=== PATIENT | male | born 1975 | race Caucasian/White ===

== ENCOUNTER 2023-06-16 09:06 | Outpatient (AMB) | payer BC, SELFPAY ==
[2023-06-16 09:13] VITALS: BP 122/82; PULSE 68; RESP 14; TEMP 37.2; O2SAT 98; BMI 21.3
--- NOTE | 2023-06-16 09:13 | A.OFFPC_ITS ---
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 Patient would like to request a referral for a colonoscopy. 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 Accompanied by: Self / Same As Patient Allergies No Known Allergies Allergy (Verified 06/16/23 09:41) Medication List - Last Reconciled 06/16/23 by Flor Amezcua CNP sertraline 50 mg PO DAILY Tobacco use date assessed: 06/16/23 Dental Screening Dental Screen Date: 06/16/23 Did you have a dental visit in the last 12 months?: Yes Did you have a dental problem in the last 6 months where you did not have access to dental care?: No Was dental information given to patient?: Patient has dentist HPI HPI Comments History of Present Illness Details 48-year-old male presents to establish care He notes he was last evaluated by his former PCP and had blood work done 5-6 years ago He reports h/o anxiety and depression, on sertraline which he admits to taking daily with significant symptoms relief. He states he is followed by a psychiatrist, who manages his psychotropic, every 2 months. He states he sees a therapist every other month. He reports itchy, pimple-like spot proximal to his rectum. The spot which has been present for 2-3 years is more itchy after a bowel movement. He noticed the spot and started having symptoms following cholecystectomy. He denies changes in appetite or bowel habits; denies bloody stool; denies abdominal pain. He requests GI referral. No acute symptoms today. He notes he sexually active, in a monogamous relationship, and practices safe sex. He reports vaping THC and CBD mix daily. He notes he has been vaping for 2 years. He denies smoking cigarette. He drinks alcohol occasionally. FH: Brother has schizophrenia [facility] Surgical History (Updated 06/16/23 @ 09:30 by Dora Presley) History of cholecystectomy Social History Housing: House Housing Other:: Self, spouse, 2 daughters and 2 cats Patient Tobacco Use Status: Former Tobacco user e-Cigarette/Vaping Use: Currently Using service: No Current occupational status: employed Current occupation: [employer] in [employer] ([employer] Current occupational exposures/hazards: Yes Cognitive needs: No Hearing needs: No Vision needs: Yes (distance ) Questionnaire PHQ-9 Over the last 2 weeks, how often have you been bothered by any of the following problems? 1. Little interest or pleasure in doing things: not at all 2. Feeling down, depressed, or hopeless: not at all 3. Trouble falling or staying asleep, or sleeping too much: not at all 4. Feeling tired or having little energy: not at all 5. Poor appetite or overeating: not at all 6. Feeling bad about yourself - or that you are a failure or have let yourself or your family down: several days 7. Trouble concentrating on things, such as reading the newspaper or watching television: not at all 8. Moving or speaking so slowly that other people could have noticed. Or the opposite - being so fidgety or restless that you have been moving around a lot more than usual: not at all 9. Thoughts that you would be better off or of hurting yourself in some way: not at all Total score: 1 Depression Screening Interpretation: Negative 16469 - PHQ-9 Billing: Yes Source: Developed by Drs. Cy Jones, Юлия Britt, Seb Hickman and colleagues, with an educational candy from [employer]. Thrive Questionnaire Date Thrive assessed: 06/16/23 I am a: Patient What is your living situation today?: I have a steady place to live Within the past 12 months, did the food you bought not last and you didn't have the money to get more?: Never true Within the past 12 months, did you worry whether your food would run out before you got money to buy more?: Never true Do you have trouble paying for medicines?: No Do you have trouble getting transportation to medical appointments?: No Do you have trouble paying your heating and electricity bill?: No Do you have trouble taking care of your child, family member or friend?: No Do you have trouble with day-to-day activities such as bathing, preparing meals, shopping, managing finances, etc.?: No Are you currently unemployed and looking for a job?: No Are you interested in more education?: No Please select the resources that you would like help with: None Currently or been in a relationship where the following occur: no concerns reported AUDIT C Alcohol Use Questionnaire (AUDIT-C) 1. How often do you have a drink containing alcohol?: Monthly or less 2. How many drinks containing alcohol do you have on a typical day when you are drinking?: 1 or 2 3. How often do you have six or more drinks on one occasion?: Never Total Score: 1 TASHA-7 AMB Questionnaire TASHA-7 Date TASHA - 7 assessed: 06/16/23 Feeling nervous, anxious, or on edge: 1 = Several days Not being able to stop or control worryin = Several days Worrying too much about different things: 1 = Several days Trouble relaxin = Not at all Being so restless that it is hard to sit still: 0 = Not at all Becoming easily annoyed or irritable: 1 = Several days Feeling afraid as if something awful might happen: 0 = Not at all Total TASHA-7 score (0-4 normal; 5-9 mild; 10-14 moderate; 15-21 severe): 4 Source: Developed by Drs. Cy Jones, Юлия Britt, Seb Hickman and colleagues, with an educational candy from [employer]. TASHA-7 Assessment Billing TASHA-7 Assessment Tool: TASHA-7 Assessment 19089 Review of Systems Const Details: Denies chills, Denies fatigue, Denies fever(s), Denies headache(s) and Denies weakness HEENT Denies change in vision, Denies dizziness, Denies headache(s), Denies hearing loss, Denies nasal congestion, Denies sinus pain, Denies sinus pressure and Denies sore throat Card Denies chest pain, Denies lightheadedness, Denies dyspnea and Denies other (palpitations) Resp Denies cough, Denies dyspnea and Denies wheezing GI Denies abdominal pain, Denies melena, Denies hematochezia, Denies change in bowel habits, Denies dyspepsia and Denies nausea Denies hematuria and Denies dysuria Musc Denies abnormal gait, Denies myalgias, Denies arthralgias, Denies numbness and Denies tingling Skin/Breast Reports rash, Denies unusual bruising and Denies wounds Neuro Denies abnormal gait, Denies dizziness, Denies headache(s), Denies memory loss, Denies numbness, Denies Sensory deficit (Neuro), Denies tingling and Denies weakness Psych Reports anxiety, Reports depression and Denies memory loss Endo Denies cold intolerance, Denies fatigue, Denies heat intolerance, Denies polydipsia and Denies polyuria Tj/Lymph Denies easy bleeding and Denies easy bruising Aller/Immun Denies wheezing Physical exam (Primary Care) Vital Signs: Last Vital Signs Temp 98.9 F 06/16/23 09:13 Pulse 68 06/16/23 09:13 Resp 14 06/16/23 09:13 BP 122/82 06/16/23 09:13 Pulse Ox 98 06/16/23 09:13 Oxygen Delivery Method Room Air 06/16/23 09:13 BMI result Body Mass Index 21.3 Tobacco/Smoking Status: Tobacco use Status Tobacco use date assessed 06/16/23 06/16/23 09:24 Patient Tobacco Use Status Former Tobacco user 06/16/23 09:24 e-Cigarette/Vaping Use Currently Using 06/16/23 09:24 PHQ-9: PHQ-9 Score PHQ-9: Total score 1 06/16/23 09:39 Depression Screening Interpretation: Negative Thrive Assessment: Date of Thrive Assessment Date Thrive assessed 06/16/23 06/16/23 09:39 Currently or been in a relationship where the following occur: no concerns reported Const Other: General: no acute distress, well developed, alert and awake Nutritional Appearance: well nourished Orientation/consciousness: patient oriented x3 HENMT Head: Yes normocephalic and Yes atraumatic Ears: hearing grossly normal bilaterally and TM's normal bilaterally General nose exam: Normal external nose present and Normal nares present Mouth: Normal oral and palatal mucosa present and moist mucous membranes Teeth and gingiva: dentition normal Throat: Yes oropharynx normal Eyes Pupils: Equal, round and reactive pupils present and Pupil accommodation reflex normal EOM: EOMs intact bilaterally Neck Neck: Yes normal visual inspection, Yes no lymphadenopathy and Yes trachea midline Thyroid: Thyroid normal Carotids: no bruits Lymphatic: no lymphadenopathy noted Chest Chest palpation & inspection: normal inspection of the chest Resp Effort & Inspection: normal respiratory effort Auscultation: clear to auscultation bilaterally Cardio Rate: regular rate Rhythm: regular rhythm Heart sounds: S1 normal heart sound present, S2 normal heart sound present, no gallops, no murmurs and no rubs Bruits: no abdominal aortic bruits and no carotid bruits GI Palpation (GI): No Abdominal aortic bruit present, Soft to palpation, nontender, No hepatosplenomegaly present and No Rebound tenderness present Auscultation: normal bowel sounds General: Yes no CVA tenderness Back/Spine/Pelvis Back: no CVA tenderness Cervical Spine: cervical ROM normal and No Cervical spine tenderness Thoracic/Lumbar Spine: thoraco-lumbar ROM normal, No pain with thoraco-lumbar ROM, No thoracic spinal tenderness and No lumbar spinal tenderness Skin General: warm and dry. Normal skin color. Normal skin turgor Lesions: no lesions Rashes: no rashes Trauma: no lacerations or abrasions Wounds: no wounds Nails: normal Neuro General: patient oriented x3, gait normal and CN's II-XI intact bilaterally Cranial nerves: Yes Equal, round and reactive pupils present Cognition (Neuro): normal cognition Gait exam (Neuro): Normal gait present Motor exam (neuro): 5/5 motor strength present throughout Sensory Exam: No Sensory deficit (Neuro) Deep tendon reflexes (DTR's): Right patellar reflex intensity grade: 2+ and Left patellar reflex intensity grade: 2+ Extrem General: Yes normal to inspection, No edema and No calf tenderness Psych Appearance: grossly normal Affect: normal affect Attitude: cooperative Thought process: Normal thought process present Assessment and Plan Assessment & Plan (1) Normal physical examination, routine: Code(s): Z00.00 - Encounter for general adult medical examination without abnormal findings Plan: No significant physical restrictions or limitations noted Advised to get fasting blood work done before next visit Follow-up in 1 month for labs review and anxiety and depression follow-up Return sooner with new or worsening symptoms Verbalized understanding and agreed with treatment plan. (2) Anxiety and depression: Code(s): F41.9 - Anxiety disorder, unspecified; F32.A - Depression, unspecified Plan: PHQ-9 and TASHA-7 scores are normal Continue to take Sertraline as prescribed Continue follow-up with Behavioral team as planned Routine exercise encouraged Follow-up in 1 month or return sooner with worsening or new symptoms Verbalized understanding and agreed with treatment plan. (3) Perineal rash: Code(s): R21 - Rash and other nonspecific skin eruption Plan: Possibly pimple-like rash proximal to his rectum He notes the rash has been present for the past 2 years. No changes in bowel habits Declines assessment of the rash at this time and defers to GI Colonoscopy and GI referral made Follow-up with worsening or new signs and symptoms Verbalized understanding and agreed with the plan. (4) Colon cancer screening: Code(s): Z12.11 - Encounter for screening for malignant neoplasm of colon Plan: As above (5) Current every day vaping: Code(s): Z72.89 - Other problems related to lifestyle Plan: Reports vaping THC and CBD mix daily. He notes he has been vaping for 2 years. Instructed on the risk of serious respiratory issues to vaping. Encouraged to avoid vaping Verbalized understanding and agreed with treatment plan. (6) Laboratory tests ordered as part of a complete physical exam (CPE): Code(s): Z00.00 - Encounter for general adult medical examination without abnormal findings Plan: Fasting labs ordered as part of a complete physical exam. Advised to fast for at least 10 hours before getting labs drawn. May drink water Verbalized understanding and agreed with treatment plan. Orders: Orders Comprehensive [place]. Panel Fast Today Z00.00 - Encounter for general adult medical examination without abnormal findings Lipid Panel Today Z00.00 - Encounter for general adult medical examination without abnormal findings TSH reflex Free T4 Today Z00.00 - Encounter for general adult medical examination without abnormal findings Complete Blood Count Auto Diff Today Z00.00 - Encounter for general adult medical examination without abnormal findings UA CC w/rflx Micro + Cult Today Z00.00 - Encounter for general adult medical examination without abnormal findings Referrals Gastroenterology Referral R21 - Rash and other nonspecific skin eruption, Z12.11 - Encounter for screening for malignant neoplasm of colon Coding Level of Care Code New Pt Level 3 (11878) New Pt Prev Care 40-64y(71992) Diagnoses Normal physical examination, routine Z00.00 Anxiety and depression F41.9; F32.A Perineal rash R21 Colon cancer screening Z12.11 Current every day vaping Z72.89 Laboratory tests ordered as part of a complete physical exam (CPE) Z00.00 Additional Codes TASHA-7 Assessment Billing - TASHA-7 Assessment Tool: TASHA-7 Assessment [id number] ([id number])
== END 2023-06-16 10:08 | disposition home or self-care (01) ==
PROVIDERS: PCP Hospitalist; Visit Provider Nurse Practitioner Family
DX: Z00.00 Encounter for general adult medical examination without abnormal findings (principal); F41.9 Anxiety disorder, unspecified; F32.A Depression, unspecified; R21 Rash and other nonspecific skin eruption; Z12.11 Encounter for screening for malignant neoplasm of colon; Z72.89 Other problems related to lifestyle
CPT/HCPCS: 99386

== ENCOUNTER 2023-07-10 07:13 | Outpatient (REF) | payer BC, SELFPAY ==
[2023-07-10 11:23] LABS: MANUAL DIFF FLAG NO
[2023-07-10 11:37] LABS: Basophils Absolute Auto 0.1 X10*3/uL (0.0-0.2); Basophils Percent Auto 0.9 % (0-2); Eosinophils Absolute Auto 0.3 X10*3/uL (0.0-0.4); Eosinophils Percent Auto 5.9 % (0-4); Hematocrit 47.9 % (42.0-52.0); Hemoglobin 16.4 g/dl (14.0-18.0); Imm Gran Abs Auto 0.02 X10*3/uL (0.00-0.03); Imm Gran Pct Auto 0.4 % (0.0-0.4); Lymphocytes Absolute Auto 1.2 X10*3/uL (1.2-4.9); Lymphocytes Percent Auto 20.6 % (20-40); Mean Corpuscular HGB Conc 34.2 g/dl (31.0-36.0); Mean Corpuscular Hemoglobin 30.5 pg (27.0-33.0); Mean Corpuscular Volume 89.2 fL (80.0-98.0); Mean Platelet Volume 11.3 fL (9.4-12.4); Monocytes Absolute Auto 0.4 X10*3/uL (0.1-1.2); Monocytes Percent Auto 7.6 % (2-11); Neutrophils Absolute Auto 3.6 x10*3/uL (2.0-8.3); Neutrophils Percent Auto 64.6 % (45-73); Platelet Count 189 X10*3/uL (160-400); Red Blood Count 5.37 X10*6/uL (4.60-5.80); Red Cell Distribution Width 12.1 % (11.0-16.0); White Blood Count 5.6 X10*3/uL (4.8-10.8)
[2023-07-10 14:06] LABS: Alanine Aminotransferase 25 U/L (0-40); Albumin Level 4.5 g/dL (3.5-5.0); Alkaline Phosphatase 90 U/L (39-117); Anion Gap 10 (12-20); Aspartate Amino Transferase 18 U/L (5-37); Bilirubin Total 0.7 mg/dL (0.0-1.0); Blood Urea Nitrogen 16 mg/dL (9-16); Calcium 9.3 mg/dL (8.4-10.2); Carbon Dioxide 29 mmol/L (22-29); Chloride 104 mmol/L (96-108); Cholesterol 201 mg/dL (<200); Estimated Glomerular Filt Rate > 60; Glucose Fasting 101 mg/dL (60-99); HDL Cholesterol 40 mg/dL (>40); LDL Cholesterol Calculated 146 mg/dL (<100); Potassium 4.2 mmol/L (3.3-5.1); Sodium 139 mmol/L (135-145); Total Protein 7.6 g/dL (6.5-8.0); Triglycerides 79 mg/dL (<150)
[2023-07-10 14:08] LABS: TSH reflex Free T4 2.34 uIU/mL (0.32-4.0)
== END 2023-07-10 07:14 | disposition home or self-care (01) ==
LOC: HO.WFDLDS 07:13
PROVIDERS: Visit Provider Nurse Practitioner Family
DX: Z00.00 Encounter for general adult medical examination without abnormal findings (principal)
CPT/HCPCS: 36415; 80053; 80061; 84443; 85025

== ENCOUNTER 2023-07-14 08:51 | Outpatient (REF) | payer BC, SELFPAY ==
[2023-07-14 11:56] LABS: Appearance Urine Clear; Color Urine Yellow; Glucose Urine UA Negative (Negative); Leukocyte Esterase Urine Negative (Negative); Nitrite Urine Negative (Negative); PH 6.5 (5.0-9.0); Specific Gravity - Urine 1.025 (1.005-1.025); Urine Blood Negative (Negative); Urine Ketones Negative (Negative); Urine Protein Negative (Neg-Trace)
[2023-07-14 12:51] LABS: Glucose Fasting 97 mg/dL (60-99)
== END 2023-07-14 08:52 | disposition home or self-care (01) ==
LOC: HO.WFDLDS 08:51
PROVIDERS: Visit Provider Nurse Practitioner Family
DX: Z00.00 Encounter for general adult medical examination without abnormal findings (principal); R73.01 Impaired fasting glucose
CPT/HCPCS: 36415; 81003; 82947

== ENCOUNTER 2023-07-14 08:53 | Outpatient (AMB) | payer BC, SELFPAY ==
[2023-07-14 09:02] VITALS: BP 122/70; PULSE 77; RESP 12; TEMP 36.5; O2SAT 99; BMI 21.9
--- NOTE | 2023-07-14 09:02 | A.OFFPC_ITS ---
Vital Signs 07/14/23 09:02 Height 6 ft 1 in Weight 166 lb 2 oz BMI 21.9 BP 122/70 Blood Pressure Location Rt brachial Position Sitting Respiration 12 Pulse 77 Pulse Source Pulse Oximeter Temp 97.7 F Temp Source Temporal Artery Scan Pulse Oximetry (%) 99 Oxygen Delivery Method Room Air Intake Visit Reasons: 1 mos labs review, anxiety/depression Rn Informatics Required: No Accompanied by: Self / Same As Patient Allergies No Known Allergies Allergy (Verified 07/14/23 09:15) Medication List - Last Reconciled 07/14/23 by Flor Amezcua CNP sertraline 50 mg PO DAILY Tobacco use date assessed: 06/16/23 Dental Screening Dental Screen Date: 07/14/23 Did you have a dental visit in the last 12 months?: Yes Did you have a dental problem in the last 6 months where you did not have access to dental care?: No Was dental information given to patient?: Patient has dentist HPI HPI Comments History of Present Illness Details 48-year-old male presents for anxiety, d epression, and labs review follow-up. He established care last month and had routine blood work done. He is on sertraline for anxiety and depression. He admits to taking his medications with controlled symptoms. He is followed by a psychiatrist, who manages his psychotropic, every 2 months. He states he sees a therapist every other month. He offers no complaints and denies acute symptoms at this time. [facility] Medical History (Updated 07/14/23 @ 09:18 by Flor Amezcua CNP) No pertinent past medical history Surgical History History of cholecystectomy Family History (Updated 07/14/23 @ 09:08 by Jennifer Cash MA) Other Mental health disorder Social History Housing: House Housing Other:: Self, spouse, 2 daughters and 2 cats Patient Tobacco Use Status: Former Tobacco user e-Cigarette/Vaping Use: Currently Using service: No Current occupational status: employed Current occupation: [employer] in [employer] ([employer]) Current occupational exposures/hazards: Yes Cognitive needs: No Hearing needs: No Vision needs: No (distance ) Questionnaire PHQ-9 Over the last 2 weeks, how often have you been bothered by any of the following problems? 1. Little interest or pleasure in doing things: not at all 2. Feeling down, depressed, or hopeless: not at all 3. Trouble falling or staying asleep, or sleeping too much: not at all 4. Feeling tired or having little energy: not at all 5. Poor appetite or overeating: not at all 6. Feeling bad about yourself - or that you are a failure or have let yourself or your family down: not at all 7. Trouble concentrating on things, such as reading the newspaper or watching television: not at all 8. Moving or speaking so slowly that other people could have noticed. Or the opposite - being so fidgety or restless that you have been moving around a lot more than usual: not at all 9. Thoughts that you would be better off or of hurting yourself in some way: not at all Total score: 0 Depression Screening Interpretation: Negative Source: Developed by Drs. Cy Jones, Seb Vizcaino and colleagues, with an educational candy from [employer]. Thrive Questionnaire Date Thrive assessed: 06/16/23 TASHA-7 AMB Questionnaire TASHA-7 Date TASHA - 7 assessed: 07/14/23 Feeling nervous, anxious, or on edge: 0 = Not at all Not being able to stop or control worryin = Not at all Worrying too much about different things: 0 = Not at all Trouble relaxin = Not at all Being so restless that it is hard to sit still: 0 = Not at all Becoming easily annoyed or irritable: 0 = Not at all Feeling afraid as if something awful might happen: 0 = Not at all Total TASHA-7 score (0-4 normal; 5-9 mild; 10-14 moderate; 15-21 severe): 0 Source: Developed by Drs. Cy Jones, Seb Vizcaino and colleagues, with an educational candy from [employer]. Review of Systems Const Details: Const Denies chills, Denies fatigue, Denies fever(s), Denies headache(s) and Denies weakness ENT Denies dizziness and Denies headache(s) Card Denies chest pain, Denies lightheadedness, Denies dyspnea and Denies other (Palpitations) Resp Denies cough, Denies dyspnea, Denies wheezing and Denies other ( shortness of breath) GI Denies abdominal pain, Denies melena, Denies hematochezia, Denies change in bowel habits, Denies dyspepsia and Denies nausea Denies hematuria and Denies dysuria Musc Denies abnormal gait, Denies myalgias, Denies arthralgias, Denies numbness and Denies tingling Skin/Breast Denies rash, Denies unusual bruising and Denies wounds Neuro Denies abnormal gait, Denies dizziness, Denies headache(s), Denies memory loss, Denies numbness, Denies Sensory deficit (Neuro), Denies tingling and Denies weakness Psych Denies anxiety, Denies depression, Denies memory loss Endo Denies cold intolerance, Denies fatigue, Denies heat intolerance, Denies polydipsia and Denies polyuria Aller/Immun Denies wheezing Physical exam (Primary Care) Vital Signs: Last Vital Signs Temp 97.7 F 07/14/23 09:02 Pulse 77 07/14/23 09:02 Resp 12 07/14/23 09:02 BP 122/70 07/14/23 09:02 Pulse Ox 99 07/14/23 09:02 Oxygen Delivery Method Room Air 07/14/23 09:02 BMI result Body Mass Index 21.9 Tobacco/Smoking Status: Tobacco use Status Tobacco use date assessed 06/16/23 07/14/23 09:09 Patient Tobacco Use Status Former Tobacco user 07/14/23 09:09 e-Cigarette/Vaping Use Currently Using 07/14/23 09:09 PHQ-9: PHQ-9 Score PHQ-9: Total score 0 07/14/23 09:09 Depression Screening Interpretation: Negative Thrive Assessment: Date of Thrive Assessment Date Thrive assessed 06/16/23 07/14/23 09:09 Const Other: General: no acute distress and well developed Nutritional Appearance: well nourished Orientation/consciousness: patient oriented x3 HENMT Head: Yes normocephalic and Yes atraumatic Eyes General: appearance normal, both eyes and all related structures Pupils: Equal, round and reactive pupils present EOM: EOMs intact bilaterally Resp Effort & Inspection: normal respiratory effort Auscultation: clear to auscultation bilaterally Cardio Rate: regular rate Rhythm: regular rhythm Heart sounds: S1 normal heart sound present, S2 normal heart sound present, no gallops, no murmurs and no rubs GI Palpation (GI): No Abdominal aortic bruit present, Soft to palpation, nontender, No hepatosplenomegaly present and No Rebound tenderness present Auscultation: normal bowel sounds General: Yes no CVA tenderness Back/Spine/Pelvis Back: no CVA tenderness Cervical Spine: cervical ROM normal and No Cervical spine tenderness Thoracic/Lumbar Spine: thoraco-lumbar ROM normal, No pain with thoraco-lumbar ROM, No thoracic spinal tenderness and No lumbar spinal tenderness Extrem General: Yes normal to inspection, No edema and No calf tenderness Skin General: warm and dry. Normal skin color. Normal skin turgor Lesions: no lesions Rashes: no rashes Trauma: no lacerations or abrasions Wounds: no wounds Nails: normal Neuro General: patient oriented x3, gait normal and no focal neuro deficit Cranial nerves: Yes Equal, round and reactive pupils present Cognition (Neuro): normal cognition Gait exam (Neuro): Normal gait present Sensory Exam: No Sensory deficit (Neuro) Psych Appearance: grossly normal Affect: normal affect Attitude: cooperative Thought process: Normal thought process present Assessment and Plan Assessment & Plan (1) Hypercholesterolemia: Code(s): E78.00 - Pure hypercholesterolemia, unspecified Plan: Recent lab results reviewed with the patient Cholesterol and LDL levels are elevated, HDL is low Advised to limit foods high in saturated fat and avoid foods high trans fat Routine exercise encouraged Verbalized understanding and agreed with treatment plan. (2) Elevated fasting glucose: Code(s): R73.01 - Impaired fasting glucose Plan: Recent fasting glucose is slightly elevated, 101 Will repeat fasting glucose Advised to fast for at least 10 hours before getting blood work done Will review results and make changes to his care plan as warranted Verbalized understanding and agreed with treatment plan. (3) Anxiety and depression: Code(s): F41.9 - Anxiety disorder, unspecified; F32.A - Depression, unspecified Plan: TASHA-7 and PHQ-9 scores are normal Continue to take sertraline as prescribed Routine exercise encouraged Continue follow-up with therapist and psychiatrist as planned Follow-up in 4 months or return sooner with worsening or new symptoms Verbalized understanding and agreed with treatment plan. Orders: Orders Glucose Fasting Today R73.01 - Impaired fasting glucose Coding Level of Care Code Est Pt Level 3 (66615) Diagnoses Hypercholesterolemia E78.00 Elevated fasting glucose R73.01 Anxiety and depression F41.9; F32.A
== END 2023-07-14 09:29 | disposition home or self-care (01) ==
PROVIDERS: PCP Nurse Practitioner Family; Visit Provider Nurse Practitioner Family
DX: E78.00 Pure hypercholesterolemia, unspecified (principal); R73.01 Impaired fasting glucose; F41.9 Anxiety disorder, unspecified; F32.A Depression, unspecified
CPT/HCPCS: 99213

== ENCOUNTER 2023-11-23 16:42 | Outpatient (AMB) | payer BC, SELFPAY ==
--- NOTE | 2023-11-23 16:44 | A.OFFPC_ITS ---
Vital Signs 11/23/23 16:45 Height 6 ft 1 in Weight 160 lb 6 oz BMI 21.2 BP 116/64 Blood Pressure Location Rt brachial Position Sitting Respiration 13 Pulse 70 Pulse Source Pulse Oximeter Temp 97.4 F Temp Source Temporal Artery Scan Pulse Oximetry (%) 99 Oxygen Delivery Method Room Air Intake Visit Reasons: 4 mos labs review, anxiety/depression Band Manager Required: No Accompanied by: Self / Same As Patient Allergies No Known Allergies Allergy (Verified 11/23/23 17:02) Medication List - Last Reconciled 11/23/23 by Flor Amezcua CNP sertraline 50 mg PO DAILY Tobacco use date assessed: 11/23/23 Dental Screening Dental Screen Date: 11/23/23 Did you have a dental visit in the last 12 months?: Yes Did you have a dental problem in the last 6 months where you did not have access to dental care?: No Was dental information given to patient?: Patient has dentist HPI HPI Comments History of Present Illness Details 48-year-old male presents for anxiety, d epression, and review of recent lab results He admits to taking his medications as prescribed without adverse reactions He reports controlled anxiety and depression symptoms He is followed by a psychiatrist every month. His psychiatric manages his psychotropic medications. He is supposed to see his therapist every other month but he has not follow up in a few months; he plans on scheduling an appointment soon He offers no complaints and denies acute symptoms at this time [facility] Medical History No pertinent past medical history Surgical History History of cholecystectomy Family History Other Mental health disorder Social History Housing: House Housing Other:: Self, spouse, 2 daughters and 2 cats Patient Tobacco Use Status: Former Tobacco user e-Cigarette/Vaping Use: Currently Using service: No Current occupational status: employed Current occupation: [employer] in [employer] ([employer]) Current occupational exposures/hazards: Yes Cognitive needs: No Hearing needs: No Vision needs: No (distance ) Questionnaire PHQ-9 Over the last 2 weeks, how often have you been bothered by any of the following problems? 1. Little interest or pleasure in doing things: several days 2. Feeling down, depressed, or hopeless: not at all 3. Trouble falling or staying asleep, or sleeping too much: several days 4. Feeling tired or having little energy: several days 5. Poor appetite or overeating: several days 6. Feeling bad about yourself - or that you are a failure or have let yourself or your family down: more than half the days 7. Trouble concentrating on things, such as reading the newspaper or watching television: not at all 8. Moving or speaking so slowly that other people could have noticed. Or the opposite - being so fidgety or restless that you have been moving around a lot more than usual: not at all 9. Thoughts that you would be better off or of hurting yourself in some way: not at all Total score: 6 Depression Screening Interpretation: Positive Depression Screening Follow-up: Existing condition and In treatment Depression Screening Done: Yes Source: Developed by Drs. Cy Jones, Юлия Britt, Seb Hickman and colleagues, with an educational candy from [employer]. Thrive Questionnaire Date Thrive assessed: 06/16/23 TASHA-7 AMB Questionnaire TASHA-7 Date TASHA - 7 assessed: 11/23/23 Feeling nervous, anxious, or on edge: 1 = Several days Not being able to stop or control worryin = Several days Worrying too much about different things: 0 = Not at all Trouble relaxin = Not at all Being so restless that it is hard to sit still: 0 = Not at all Becoming easily annoyed or irritable: 2 = More than half the days Feeling afraid as if something awful might happen: 1 = Several days Total TASHA-7 score (0-4 normal; 5-9 mild; 10-14 moderate; 15-21 severe): 5 Source: Developed by Drs. Cy Jones, лЮия Britt, Seb Hickman and colleagues, with an educational candy from [employer]. TASHA-7 Assessment Billing TASHA-7 Assessment Tool: TASHA-7 Assessment 86012 Review of Systems Const Details: Const Denies chills, Denies fatigue, Denies fever(s), Denies headache(s) and Denies weakness ENT Denies dizziness and Denies headache(s) Card Denies chest pain, Denies lightheadedness, Denies dyspnea and Denies other (Palpitations) Resp Denies cough, Denies dyspnea, Denies wheezing and Denies other ( shortness of breath) GI Denies abdominal pain, Denies melena, Denies hematochezia, Denies change in bowel habits, Denies dyspepsia and Denies nausea Denies hematuria and Denies dysuria Musc Denies abnormal gait, Denies myalgias, Denies arthralgias, Denies numbness and Denies tingling Skin/Breast Denies rash, Denies unusual bruising and Denies wounds Neuro Denies abnormal gait, Denies dizziness, Denies headache(s), Denies memory loss, Denies numbness, Denies Sensory deficit (Neuro), Denies tingling and Denies weakness Psych Denies anxiety, Denies depression, Denies memory loss Endo Denies cold intolerance, Denies fatigue, Denies heat intolerance, Denies polydipsia and Denies polyuria Aller/Immun Denies wheezing Physical exam (Primary Care) Vital Signs: Last Vital Signs Temp 97.4 F 11/23/23 16:45 Pulse 70 11/23/23 16:45 Resp 13 11/23/23 16:45 BP 116/64 11/23/23 16:45 Pulse Ox 99 11/23/23 16:45 Oxygen Delivery Method Room Air 11/23/23 16:45 BMI result Body Mass Index 21.2 Tobacco/Smoking Status: Tobacco use Status Tobacco use date assessed 11/23/23 11/23/23 16:54 Patient Tobacco Use Status Former Tobacco user 11/23/23 16:54 e-Cigarette/Vaping Use Currently Using 11/23/23 16:54 PHQ-9: PHQ-9 Score PHQ-9: Total score 6 11/23/23 16:54 Depression Screening Interpretation: Positive Depression Screening Follow-up: Existing condition and In treatment Thrive Assessment: Date of Thrive Assessment Date Thrive assessed 06/16/23 11/23/23 16:54 Const Other: General: no acute distress and well developed Nutritional Appearance: well nourished Orientation/consciousness: patient oriented x3 HENMT Head: Yes normocephalic and Yes atraumatic Eyes General: appearance normal, both eyes and all related structures Pupils: Equal, round and reactive pupils present EOM: EOMs intact bilaterally Resp Effort & Inspection: normal respiratory effort Auscultation: clear to auscultation bilaterally Cardio Rate: regular rate Rhythm: regular rhythm Heart sounds: S1 normal heart sound present, S2 normal heart sound present, no gallops, no murmurs and no rubs GI Palpation (GI): No Abdominal aortic bruit present, Soft to palpation, nontender, No hepatosplenomegaly present and No Rebound tenderness present Auscultation: normal bowel sounds General: Yes no CVA tenderness Back/Spine/Pelvis Back: no CVA tenderness Cervical Spine: cervical ROM normal and No Cervical spine tenderness Thoracic/Lumbar Spine: thoraco-lumbar ROM normal, No pain with thoraco-lumbar ROM, No thoracic spinal tenderness and No lumbar spinal tenderness Extrem General: Yes normal to inspection, No edema and No calf tenderness Skin General: warm and dry. Normal skin color. Normal skin turgor Neuro General: patient oriented x3, gait normal and no focal neuro deficit Cranial nerves: Yes Equal, round and reactive pupils present Cognition (Neuro): normal cognition Gait exam (Neuro): Normal gait present Sensory Exam: No Sensory deficit (Neuro) Psych Appearance: grossly normal Affect: normal affect Attitude: cooperative Thought process: Normal thought process present Assessment and Plan Assessment & Plan (1) Anxiety and depression: Code(s): F41.9 - Anxiety disorder, unspecified; F32.A - Depression, unspecified Plan: PHQ-9 and TASHA-7 scores revealed mild anxiety Continue current treatment regimen Follow-up with psychiatrist and therapist as planned Routine exercise encouraged Follow-up for telehealth visit in 1 month for hyperlipidemia. Advised to get fasting blood work done before his next visit Return sooner with worsening or new symptoms Verbalized understanding and agreed with treatment plan (2) Elevated fasting glucose: Code(s): R73.01 - Impaired fasting glucose Plan: Previous fasting glucose was elevated Recent fasting glucose is normal Orders: Orders Lipid Panel Today E78.00 - Pure hypercholesterolemia, unspecified Coding Level of Care Code Est Pt Level 3 (20053) Diagnoses Anxiety and depression F41.9; F32.A Elevated fasting glucose R73.01 Additional Codes TASHA-7 Assessment Billing - TASHA-7 Assessment Tool: TASHA-7 Assessment 18107 ([id number])
[2023-11-23 16:45] VITALS: BP 116/64; PULSE 70; RESP 13; TEMP 36.3; O2SAT 99; BMI 21.2
== END 2023-11-23 17:22 | disposition home or self-care (01) ==
PROVIDERS: PCP Nurse Practitioner Family; Visit Provider Nurse Practitioner Family
DX: F41.9 Anxiety disorder, unspecified (principal); F32.A Depression, unspecified; R73.01 Impaired fasting glucose
CPT/HCPCS: 96127; 99213

== ENCOUNTER 2025-07-14 13:10 | Outpatient (AMB) | payer BC, SELFPAY ==
--- OUTSIDE RECORDS SUMMARY | 2025-07-14 13:12 | XMS_ITS | Clinical Summary ---
Author Organization [facility] Address [address] [address] Phone Care Team Providers Care Manufacturing Leader Name Role Phone Pcp, Unknown Primary Care Provider Unavailabl e Allergies Active Allergy Reactions Criticality Noted Date Comments Cephalexin Rash Low 10/12/2019 Possible rash reaction Sulfa (Sulfonamide Antibiotics) Rash Low 10/12/2019 Possible rash reaction Medications sertraline (ZOLOFT) 50 MG tablet Take 50 mg by mouth every morning. 02/25/2024 Active Active Problems No known active problems Social History Tobacco Use Types Packs/Day Years Used Date Smoking Tobacco: Never Smokeless Tobacco: Never Tobacco Cessation:Counseling Given: Not Answered Education Answer Date Recorded Are you interested in more education? Not on raudel e 03/15/2024 Are you concerned about learning? Not on file 03/15/2024 No 03/15/2024 No 03/15/2024 Digital Access Answer Date Recorded No 03/15/2024 No 03/15/2024 Reliable internet access at home? Not on file 03/15/2024 Device with a working camera? Not on file Sex and Gender Information Value Date Recorded Sex Assigned at Not on file Legal Sex Male 9:26 PM EDT Gender Identity Not on file Sexual Orientation Not on file Last Filed Vital Signs Vital Sign Reading Time Taken Comments Blood Pressure 122/79 03/15/2024 6:57 PM EDT Pulse 81 03/15/2024 6:57 PM EDT Temperature 37.6 C (99.7 F) 03/15/2024 6:57 PM EDT Respiratory Rate 16 03/15/2024 6:57 PM EDT Oxygen Saturation 97% 03/15/2024 6:57 PM EDT Inhaled Oxygen Concentration - - Weight - - Height - - Body Mass Index - - Plan of Treatment Health Maintenance Due Date Last Done Comments Adult Td,Tdap Booster 1977 LIPID PANEL 1977 DEPRESSION SCREENING 1989 HEPATITIS C SCREENING 1995 HIV ONE-TIME SCREENING (18-6 5 YEARS) 1995 COLOGUARD 2022 COLONOSCOPY 2022 COLORECTAL CANCER SCREENING 2022 FIT TEST 2022 FOBT 2022 SIGMOIDOSCOPY 2022 VIRTUAL COLONOSCOPY 2022 INFLUENZA VACCINE (#1) 2025 07/18/2023 COVID-19 VACCINE (2024-2 6 season) 2025 07/18/2023, 10/27/2022, 09/16/2021 SMOKING STATUS SCREENING (On ce After 26 Yrs) Completed 03/15/2024 HEPATITIS A VACCINES Aged Out No long er eligible based on patient's age to complete this topic HIB VACCINES Aged Out No longer eligi ble based on patient's age to complete this topic MENINGOCOCCAL VACCINES (ACWY) Aged Out No longer eligible based on patient's age to complete this topic MENINGOCOCCAL VACCINES (B) Aged Out N o longer eligible based on patient's age to complete this topic PNEUMOCOCCAL VACCINES (0-49 years) Aged Out No longer eligible b ased on patient's age to complete this topic Medical Devices Not on file Insurance [facility] EPO [facility] PPO EPO [facility] PPO EPO [facility] PPO EPO [facility] [place] [address] [place] [address] [address] [place] [address] PPO EPO [facility] PPO EPO [facility] PPO EPO Care Teams Manufacturing Leader Relationship Specialty Start Date End Date Pcp, Unknown PCP - General 03/15/24 Additional Source Comments The information contained in this document represents components of the legal health record. It is not the complete legal health record.[facility]
--- NOTE | 2025-07-14 13:13 | A.OFFPC_ITS ---
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 He admits to taking Sertraline as prescribed without adverse reaction. Reports controlled anxiety and depressive symtpoms. Acute issue(s) - None Past Medical History - Hypercholesterolemia, anxiety, depress ion Social History - Nonsmoker. Drinks 2-3 vodka saltzers 2 -3 times monthly. Dry vapes cannabis daily - Has been making healthy dietary choice s. Walks regularly. Generally sleep well Health maintenance - Last eye exam was several years ago. R efer to Ophthalmology for routine eye exam - Last dental visit was a few weeks ago - Last tetanus vaccine was more than 10 years ago; decline Tdap vaccine today - Has not been vaccinated for the flu ; plans on getting the vaccine this weeken - He has never had a colonoscopy and req uests a referral to have it done Specialists - Psychiatrist with [facility] every 3-6 months [facility] Medical History No pertinent past medical history Surgical History History of cholecystectomy Family History Other Mental health disorder Social History Housing: House Housing Other:: Self, spouse, 2 daughters and 2 cats Patient Tobacco Use Status: Former Tobacco user e-Cigarette/Vaping Use: Currently Using Second Hand Smoke Exposure: No service: No Current occupational status: employed Current occupation: [email or web address] in [place] ([employer]) Current occupational exposures/hazards: Yes Cognitive needs: No Hearing needs: No Vision needs: No (distance ) Questionnaire PHQ-9 Over the last 2 weeks, how often have you been bothered by any of the following problems? 1. Little interest or pleasure in doing things: not at all 2. Feeling down, depressed, or hopeless: not at all 3. Trouble falling or staying asleep, or sleeping too much: not at all 4. Feeling tired or having little energy: not at all 5. Poor appetite or overeating: not at all 6. Feeling bad about yourself - or that you are a failure or have let yourself or your family down: not at all 7. Trouble concentrating on things, such as reading the newspaper or watching television: not at all 8. Moving or speaking so slowly that other people could have noticed. Or the opposite - being so fidgety or restless that you have been moving around a lot more than usual: not at all 9. Thoughts that you would be better off or of hurting yourself in some way: not at all Total score: 0 Depression Screening Interpretation: Negative Depression Screening Done: Yes 79446 - PHQ-9 Billing: Yes Source: Developed by Drs. Cy Jones, Юлия Britt, Seb Hickman and colleagues, with an educational candy from [employer]. Thrive Questionnaire Date Thrive assessed: 07/14/25 I am a: Patient What is your living situation today?: I have a steady place to live Within the past 12 months, did the food you bought not last and you didn't have the money to get more?: Never true Within the past 12 months, did you worry whether your food would run out before you got money to buy more?: Never true Do you have trouble paying for medicines?: No Do you have trouble getting transportation to medical appointments?: No Do you have trouble paying your heating and electricity bill?: No Do you have trouble taking care of your child, family member or friend?: No Do you have trouble with day-to-day activities such as bathing, preparing meals, shopping, managing finances, etc.?: No Are you currently unemployed and looking for a job?: No Are you interested in more education?: Yes Please select the resources that you would like help with: None Currently or been in a relationship where the following occur: No concerns reported THRIVE Score: 0 AUDIT C Alcohol Use Questionnaire (AUDIT-C) 1. How often do you have a drink containing alcohol?: 2-4 times a month 2. How many drinks containing alcohol do you have on a typical day when you are drinking?: 1 or 2 3. How often do you have six or more drinks on one occasion?: Never Total Score: 2 Score Reviewed/Action Taken: Yes TASHA-7 AMB Questionnaire TASHA-7 Date TASHA - 7 assessed: 07/14/25 Feeling nervous, anxious, or on edge: 0 = Not at all Not being able to stop or control worryin = Not at all Worrying too much about different things: 0 = Not at all Trouble relaxin = Not at all Being so restless that it is hard to sit still: 0 = Not at all Becoming easily annoyed or irritable: 0 = Not at all Feeling afraid as if something awful might happen: 0 = Not at all Total TASHA-7 score (0-4 normal; 5-9 mild; 10-14 moderate; 15-21 severe): 0 Source: Developed by Drs. Cy Jones, Юлия Britt, Seb Hickman and colleagues, with an educational candy from [employer]. TASHA-7 Assessment Billing TASHA-7 Assessment Tool: TASHA-7 Assessment 74531 Review of Systems Const Details: Denies chills, Denies fatigue, Denies fever(s), Denies headache(s) and Denies weakness HEENT Denies change in vision, Denies dizziness, Denies headache(s), Denies hearing loss, Denies nasal congestion, Denies sinus pain, Denies sinus pressure and Denies sore throat Card Denies chest pain, Denies lightheadedness, Denies dyspnea and Denies other (palpitations) Resp Denies cough, Denies dyspnea and Denies wheezing GI Denies abdominal pain, Denies melena, Denies hematochezia, Denies change in bowel habits, Denies dyspepsia and Denies nausea Denies hematuria and Denies dysuria Musc Denies abnormal gait, Denies myalgias, Denies arthralgias, Denies numbness and Denies tingling Skin/Breast Denies rash, Denies unusual bruising and Denies wounds Neuro Denies abnormal gait, Denies dizziness, Denies headache(s), Denies memory loss, Denies numbness, Denies Sensory deficit (Neuro), Denies tingling and Denies weakness Psych Denies anxiety, Denies depression and Denies memory loss Endo Denies cold intolerance, Denies fatigue, Denies heat intolerance, Denies polydipsia and Denies polyuria Tj/Lymph Denies easy bleeding and Denies easy bruising Aller/Immun Denies wheezing Physical exam (Primary Care) Vital Signs: Last Vital Signs Temp 97.6 F 07/14/25 13:18 Pulse 70 07/14/25 13:18 Resp 16 07/14/25 13:18 BP 127/66 07/14/25 13:18 Pulse Ox 100 07/14/25 13:18 Oxygen Delivery Method Room Air 07/14/25 13:18 BMI result Body Mass Index 22.0 Tobacco/Smoking Status: Tobacco use Status Tobacco use date assessed 07/14/25 07/14/25 13:18 Patient Tobacco Use Status Former Tobacco user 07/14/25 13:18 e-Cigarette/Vaping Use Currently Using 07/14/25 13:18 PHQ-9: PHQ-9 Score PHQ-9: Total score 0 07/14/25 13:18 Depression Screening Interpretation: Negative Thrive Assessment: Date of Thrive Assessment Date Thrive assessed 07/14/25 07/14/25 13:18 Currently or been in a relationship where the following occur: No concerns reported Const Other: General: no acute distress, well developed, alert and awake Nutritional Appearance: well nourished Orientation/consciousness: patient oriented x3 HENMT Head: Yes normocephalic and Yes atraumatic Ears: hearing grossly normal bilaterally and TM's normal bilaterally General nose exam: Normal external nose present and Normal nares present Mouth: Normal oral and palatal mucosa present and moist mucous membranes Teeth and gingiva: dentition normal Throat: Yes oropharynx normal Eyes Pupils: Equal, round and reactive pupils present and Pupil accommodation reflex normal EOM: EOMs intact bilaterally Neck Neck: Yes normal visual inspection, Yes no lymphadenopathy and Yes trachea midline Thyroid: Thyroid normal Carotids: no bruits Lymphatic: no lymphadenopathy noted Chest Chest palpation & inspection: normal inspection of the chest Resp Effort & Inspection: normal respiratory effort Auscultation: clear to auscultation bilaterally Cardio Rate: regular rate Rhythm: regular rhythm Heart sounds: S1 normal heart sound present, S2 normal heart sound present, no gallops, no murmurs and no rubs Bruits: no abdominal aortic bruits and no carotid bruits GI Palpation (GI): No Abdominal aortic bruit present, Soft to palpation, nontender, No hepatosplenomegaly present and No Rebound tenderness present Auscultation: normal bowel sounds General: Yes no CVA tenderness Back/Spine/Pelvis Back: no CVA tenderness Cervical Spine: cervical ROM normal and No Cervical spine tenderness Thoracic/Lumbar Spine: thoraco-lumbar ROM normal, No pain with thoraco-lumbar ROM, No thoracic spinal tenderness and No lumbar spinal tenderness Skin General: warm and dry. Normal skin color. Normal skin turgor Lesions: no lesions Rashes: no rashes Trauma: no lacerations or abrasions Wounds: no wounds Nails: normal Neuro General: patient oriented x3, gait normal and CN's II-XI intact bilaterally Cranial nerves: Yes Equal, round and reactive pupils present Cognition (Neuro): normal cognition Gait exam (Neuro): Normal gait present Motor exam (neuro): 5/5 motor strength present throughout Sensory Exam: No Sensory deficit (Neuro) Deep tendon reflexes (DTR's): Right patellar reflex intensity grade: 2+ and Left patellar reflex intensity grade: 2+ Extrem General: Yes normal to inspection, No edema and No calf tenderness Psych Appearance: grossly normal Affect: normal affect Attitude: cooperative Thought process: Normal thought process present Coding Level of Care Code Est Pt Prev Care 40-64y(20728) Diagnoses Normal physical examination, routine Z00.00 Colon cancer screening Z12.11 Eye exam, routine Z01.00 Laboratory tests ordered as part of a complete physical exam (CPE) Z00.00 Additional Codes TASHA-7 Assessment Billing - TASHA-7 Assessment Tool: TASHA-7 Assessment 47761 ([id number]) PHQ-9 - 81831 - PHQ-9 Billing: Yes ([id number]) Assessment & Plan Assessment & Plan (1) Normal physical examination, routine: Code(s): Z00.00 - Encounter for general adult medical examination without abnormal findings Category: Medical Plan: No significant functional limitations noted. Continue current treatment regimen. Healthy diet and routine exercise encouraged. Perform lab work and follow-up for telehealth visit for labs review in 2-4 w eeks. Return sooner with symptoms or concerns. Verbalized understanding and agreed with the plan. (2) Colon cancer screening: Code(s): Z12.11 - Encounter for screening for malignant neoplasm of colon Category: Medical Plan: He has never had a colonoscopy and requests a referral to have it done. Referred to [facility] gastroenterology. (3) Eye exam, routine: Code(s): Z01.00 - Encounter for examination of eyes and vision without abnormal findings Category: Medical Plan: His last eye exam was several years ago. Refer to Ophthalmology for routine eye exam. (4) Laboratory tests ordered as part of a complete physical exam (CPE): Code(s): Z00.00 - Encounter for general adult medical examination without abnormal findings Category: Medical Plan: Fasting labs ordered as part of a complete physical exam. Advised to fast for at least 10 hours before getting labs drawn. May drink water Verbalized understanding and agreed with treatment plan. Orders: Orders Comprehensive [place]. Panel Fast Today Z00.00 - Encounter for general adult med ical examination without abnormal findings Microalbumin, Random (w Creat) Today Z00.00 - Encounter for general adult medical examination without abnormal findings PSA, Ultra Sensitive Today Z00.00 - Encounter for general adult medical examination without abnormal findings TSH reflex Free T4 Today Z00.00 - Encounter for general adult medical examination without abnormal findings Complete Blood Count Auto Diff Today Z00.00 - Encounter for general adult medical examination without abnormal findings Lipid Panel Today Z00.00 - Encounter for general adult medical examination without abnormal findings UA CC w/rflx Micro + Cult Today Z00.00 - Encounter for general adult medical examination without abnormal findings Vitamin D 25-OH Total Today Z00.00 - Encounter for general adult medical examination without abnormal findings Referrals Gastroenterology Referral Z12.11 - Encounter for screening for malignant neoplasm of colon Ophthalmology Referral Z01.00 - Encounter for examination of eyes and vision without abnormal findings
[2025-07-14 13:18] VITALS: BP 127/66; PULSE 70; RESP 16; TEMP 36.4; O2SAT 100; BMI 22.0
== END 2025-07-14 13:49 | disposition home or self-care (01) ==
LOC: HO.HMCFM 13:10
PROVIDERS: PCP Nurse Practitioner Family; Visit Provider Nurse Practitioner Family
DX: Z00.00 Encounter for general adult medical examination without abnormal findings (principal); Z12.11 Encounter for screening for malignant neoplasm of colon; Z01.00 Encounter for examination of eyes and vision without abnormal findings

== ENCOUNTER → 2025-07-14 13:10 | Outpatient (BNVA) | payer BC, SELFPAY | PROVIDERS: PCP Nurse Practitioner Family; Visit Provider Nurse Practitioner Family | DX: Z00.00 Encounter for general adult medical examination without abnormal findings (principal) | CPT/HCPCS: 96127 ==

== ENCOUNTER 2025-07-28 10:25 | Outpatient (REF) | payer BC, SELFPAY ==
--- OUTSIDE RECORDS SUMMARY | 2025-07-28 11:19 | XMS_ITS | Clinical Summary ---
Author Organization [facility] Address [address] [address] Phone Care Team Providers Care Cash Clerk Name Role Phone Pcp, Unknown Primary Care [...] on file Insurance [facility] EPO [facility] PPO EPO [facility] PPO EPO [facility] PPO EPO [facility] [place] [address] [place] [address] [place] [address] PPO EPO [facility] PPO EPO [facility] PPO EPO Care Teams Cash Clerk Relationship Specialty Start Date End Date Pcp, Unknown PCP - General 03/15/24 Additional Source Comments The information contained in this document represents components of the legal health record. It is not the complete legal health record.[facility]
[2025-07-28 11:35] LABS: MANUAL DIFF FLAG NO
[2025-07-28 11:46] LABS: Hematocrit 46.3 % (42.0-52.0); Hemoglobin 16.4 g/dl (14.0-18.0); Imm Gran Abs Auto 0.02 X10*3/uL (0.00-0.03); Imm Gran Pct Auto 0.4 % (0.0-0.4); Lymphocytes Absolute Auto 1.2 X10*3/uL (1.2-4.9); Mean Corpuscular HGB Conc 35.4 g/dl (31.0-36.0); Mean Corpuscular Hemoglobin 31.2 pg (27.0-33.0); Mean Corpuscular Volume 88.2 fL (80.0-98.0); NRBC Abs Auto 0.000 X10*3/uL (0.0-0.012); NRBC Pct Auto 0.0 /100WBC (0.0-0.2); Platelet Count 188 X10*3/uL (160-400); Red Blood Count 5.25 X10*6/uL (4.60-5.80); White Blood Count 5.3 X10*3/uL (4.8-10.8)
[2025-07-28 12:32] LABS: Alanine Aminotransferase 40 U/L (0-40); Albumin Level 4.6 g/dL (3.5-5.0); Alkaline Phosphatase 99 U/L (39-117); Anion Gap 6 (12-20); Aspartate Amino Transferase 31 U/L (5-37); Blood Urea Nitrogen 15 mg/dL (9-16); Calcium 9.0 mg/dL (8.4-10.2); Carbon Dioxide 32 mmol/L (22-29); Chloride 104 mmol/L (96-108); Cholesterol 203 mg/dL (<200); Estimated Glomerular Filt Rate > 60; HDL Cholesterol 41 mg/dL (>40); Potassium 4.4 mmol/L (3.3-5.1); Sodium 138 mmol/L (135-145); Total Protein 7.5 g/dL (6.5-8.0); Triglycerides 116 mg/dL (<150)
[2025-07-28 14:24] LABS: Appearance Urine Clear; Glucose Urine UA Negative (Negative); PH 5.5 (5.0-9.0); Specific Gravity - Urine 1.020 (1.005-1.025)
[2025-08-02 21:12] LABS: PSA, Ultra Sensitive 0.52 ng/mL
== END 2025-07-28 10:26 | disposition home or self-care (01) ==
LOC: HO.WFDLDS 10:25
PROVIDERS: Visit Provider Nurse Practitioner Family
DX: Z00.00 Encounter for general adult medical examination without abnormal findings (principal); Z12.5 Encounter for screening for malignant neoplasm of prostate; Z13.29 Encounter for screening for other suspected endocrine disorder; Z13.21 Encounter for screening for nutritional disorder; Z13.6 Encounter for screening for cardiovascular disorders
CPT/HCPCS: 36415; 80053; 80061; 81003; 82043; 82306; 82570; 84153; 84443; 85025

== ENCOUNTER 2025-09-29 14:35 | Outpatient (AMB) | payer BC, SELFPAY ==
--- NOTE | 2025-09-29 14:32 | A.OFFPC_ITS ---
Intake Visit Reasons: Tele 2-4 wks labs review Intake Note: patient here for follow up Telehealth follow up for labs [employer] Required: No Allergies Penicillins Allergy (Mild, Verified 09/29/25 14:53) Hives Medication List - Last Reconciled 09/29/25 by Flor Amezcua CNP sertraline 50 mg PO DAILY Tobacco use date assessed: 09/29/25 Dental Screening Dental Screen Date: 09/29/25 Did you have a dental visit in the last 12 months?: Yes Did you have a dental problem in the last 6 months where you did not have access to dental care?: No Was dental information given to patient?: Patient has dentist HPI HPI Comments History of Present Illness Details 50-year-old male presents for a teleheal visit for review of recent lab results. He admits to taking sertraline as prescribed without adverse reactions. He offers no complaints and denies acute symptoms at this time. [facility] Medical History No pertinent past medical history Surgical History History of cholecystectomy Family History Other Mental health disorder Social History Housing: House Housing Other:: Self, spouse, 2 daughters and 2 cats Patient Tobacco Use Status: Former Tobacco user e-Cigarette/Vaping Use: Currently Using Second Hand Smoke Exposure: No service: No Current occupational status: employed Current occupation: [employer] in [employer] ([employer]) Current occupational exposures/hazards: Yes Cognitive needs: No Hearing needs: No Vision needs: No (distance ) Questionnaire Thrive Questionnaire Date Thrive assessed: 07/14/25 TASHA-7 AMB Questionnaire TASHA-7 Date TASHA - 7 assessed: 07/14/25 Source: Developed by Drs. Cy Jones, Юлия Britt, Seb Hickman and colleagues, with an educational candy from [employer]. Review of Systems Const Details: Denies chills, Denies fatigue, Denies fever(s), Denies headache(s) and Denies weakness Cardiac Denies chest pain, Denies claudication, Denies leg edema, Denies lightheadedness, Denies palpitations, Denies dyspnea, Denies dyspnea on exertion, Denies orthopnea and Denies other (Loss of consciousness) Resp Denies cough, Denies excessive phlegm production, Denies dyspnea, Denies dyspnea on exertion, Denies snoring and Denies wheezing Physical exam (Primary Care) Tobacco/Smoking Status: Tobacco use Status Tobacco use date assessed 09/29/25 09/29/25 14:32 Patient Tobacco Use Status Former Tobacco user 09/29/25 14:32 e-Cigarette/Vaping Use Currently Using 09/29/25 14:32 Thrive Assessment: Date of Thrive Assessment Date Thrive assessed 07/14/25 09/29/25 14:32 Const Other: Patient is alert and oriented x4 Telehealth Telehealth Telehealth Platform: Telephone Location of provider rendering services: practice address Location of patient: address on file Patient Identification confirmed using: Name, : Yes Telehealth method: voice only Patient verbally consented to treatment: Yes Patient verbally consented to billing insurance company: Yes Patient informed of any privacy concerns related to visit: Yes Coding Level of Care Code Tele Est Pt Level 3 (97152) Diagnoses Hypercholesterolemia E78.00 Time Spent (min) 10 Assessment & Plan Assessment & Plan (1) Hypercholesterolemia: Code(s): E78.00 - Pure hypercholesterolemia, unspecified Category: Medical Plan: Recent lab results are unremarkable except for mildly elevated total cholesterol and LDL levels, 203 and 139 respectively. Advised to limit foods high in saturated fat and avoid foods high in trans fat. Routine exercise encouraged. Fast for 10-12 hours, may drink water, and perform with a panel blood work a few days before next visit. Follow-up for transfer of care with a new provider within the practice in 2-3 months. Return sooner with symptoms or concerns. Verbalized understanding and agreed with the plan. Orders: Orders Lipid Panel 2 Months E78.00 - Pure hypercholesterolemia, unspecified
--- OUTSIDE RECORDS SUMMARY | 2025-09-29 18:40 | XMS_ITS | Clinical Summary ---
Author Organization [facility] Address [address] [address] Phone Care Team Providers Care Saturator Tender Name Role Phone Pcp, Unknown Primary Care [...] on file Insurance [facility] EPO [facility] PPO EPO [facility] PPO EPO [facility] PPO EPO [facility] [place] [address] [place] [address] [address] [place] [address] PPO EPO [facility] PPO EPO [facility] PPO EPO Care Teams Saturator Tender Relationship Specialty Start Date End Date Pcp, Unknown PCP - General 03/15/24 Additional Source Comments The information contained in this document represents components of the legal health record. It is not the complete legal health record.[facility]
== END 2025-09-29 14:54 | disposition home or self-care (01) ==
LOC: HO.HMCFM 14:35
PROVIDERS: PCP Nurse Practitioner Family; Visit Provider Nurse Practitioner Family
DX: E78.00 Pure hypercholesterolemia, unspecified (principal)